=== PATIENT | female | born 2000 | race Caucasian/White ===

== ENCOUNTER 2023-04-21 05:07 | Emergency (ER) | payer OTHER, SELFPAY ==
[2023-04-21 05:11] VITALS: BP 150/80; PULSE 99; RESP 18; TEMP 37.3; O2SAT 98
[2023-04-21 05:25] LABS: Ur HCG Qualitative* Negative (Negative)
--- NOTE | 2023-04-21 05:25 | ED.FEMALEGU ---
HPI - Female Genitourinary General Time Seen by Provider: 05:25 Date Seen: 04/21/23 Chief complaint: Urogenital Problems, Female Stated complaint: vaginal pain Time Seen by Provider: 04/21/23 05:11 Source: patient, RN notes reviewed and old records reviewed Mode of arrival: ambulatory Limitations: no limitations History of Present Illness HPI Narrative: 22-year-old female who comes in today with 2 days of vaginal irritation. Has not noted any swelling or ulcers. No discharge. Last period was March 07, patient is on control and does note that she took a test which was negative. Denies urinary symptoms or abdominal pain. Related Data Allergies Allergy/AdvReac Type Severity Reaction Status Date / Time No Known Drug Allergies Allergy Verified 04/21/23 05:11 Exam Narrative: Exam Narrative: General: Well-developed and well-nourished, no acute distress Head: Atraumatic and normocephalic Eyes: Pupils are equal reactive, extraocular motions intact, conjunctiva clear ENT: External nose and ears are normal, posterior pharynx without erythema or exudate Neck: No midline cervical tenderness, full spontaneous range of motion the neck, trachea midline, no adenopathy Heart: Regular rate and rhythm no murmurs or thrills Lungs: Clear to auscultation bilaterally without wheezes or crackles Abdomen: Soft, nontender, nondistended with active bowel sounds Musculoskeletal: No tenderness, deformity, or edema Neurologic: Awake, alert, and oriented x3, no gross focal neurologic deficits, cranial nerves intact as tested Psych: Mood and affect are appropriate Skin: No rashes Const: Vital Signs, click to edit/add: Vital Signs - 24 hr 04/21/23 05:11 Temperature 99.2 F Pulse Rate [Left P ulse Oximeter] 99 Respiratory Rate 18 Blood Pressure [Ri ght Upper Arm] 150/80 H Pulse Oximetry 98 Oxygen Delivery Me thod Room Air Course Course ED Course: Patient presents today with vaginal pain and discharge, no swelling or ulcerations noted. No abdominal tenderness on exam, chaperoned pelvic exam will be performed. Reevaluation(s) Time of Reevaluation #1: 05:40 Reevaluation #1: Chaperoned pelvic exam performed. External genitalia normal in appearance. Patient quite tender with initial insertion of the speculum and notes that this is posterior. The vaginal mucosa does not demonstrate any erythema or ulcerations. There is scant yellowish discharge. On withdrawing the scope small amount of purulent discharge was noted and there is some mild erythema at the posterior commissure and forchette, particularly on the right. Although there is no swelling in this area, suspect patient may have an early Bartholin infection. No cyst or abscess to drain, patient will be started on antibiotics and discharged. Vital Signs Vital signs: Initial Vital Signs Temperature 99.2 F 04/21/23 05:11 Temperature Source Temporal Artery Scan 04/21/23 05:11 Pulse Rate 99 04/21/23 05:11 Pulse Rhythm Regular 04/21/23 05:11 Respiratory Rate 18 04/21/23 05:11 Blood Pressure 150/80 H 04/21/23 05:11 Blood Pressure Mean 103 04/21/23 05:11 Blood Pressure Position Sitting 04/21/23 05:11 Pulse Oximetry 98 04/21/23 05:11 Oxygen Delivery Method Room Air 04/21/23 05:11 Vital Signs Temperature 99.2 F 04/21/23 05:11 Pulse Rate 99 04/21/23 05:11 Respiratory Rate 18 04/21/23 05:11 Blood Pressure 150/80 H 04/21/23 05:11 Pulse Oximetry 98 04/21/23 05:11 Oxygen Delivery Method Room Air 04/21/23 05:11 Temperature 99.2 F 04/21/23 05:11 Pulse Rate 99 04/21/23 05:11 Respiratory Rate 18 04/21/23 05:11 Blood Pressure 150/80 H 04/21/23 05:11 Pulse Oximetry 98 04/21/23 05:11 Oxygen Delivery Method Room Air 04/21/23 05:11 MDM - Female Genitourinary Lab Data Labs: Lab Results 04/21/23 Range/Units 05:20 Urine HCG, Qual Negative (Negative) Discharge Plan Discharge Clinical Impression: Bartholin's gland infection Patient Disposition: Home, Self-Care Condition: Stable Instructions: Bartholin Cyst (ED) Additional Instructions: Warm Sitz baths a couple of times today. Tylenol ibuprofen for pain. Take antibiotics as prescribed and [facility] [phone] Activity Level: No Restrictions Follow Up/Referrals: Kylee Ivory MD [Referring] - Stand Alone Forms: [employer] Info Instructions
--- NOTE | 2023-04-21 05:59 | ED.NURSE ---
sql report writer chaperoned pelvic exam. patient tolerated pelvic exam, 2 swabs were collected.
[2023-04-21 06:28] LABS: Clue Cells No Clue Cells Seen (None Seen); Trichomonas No Trichomonas Seen (None Seen); Yeast No Yeast Seen (None Seen)
[2023-04-21 07:20] LABS: Chlamydia DNA Amplified* NOT DETECTED (No Detected); GC DNA Amplified* NOT DETECTED (No Detected)
== END 2023-04-21 06:00 | disposition home or self-care (01) ==
PROVIDERS: Emergency Provider Family Medicine; PCP Family Medicine
DX: N75.0 Cyst of Bartholin's gland (principal)
CPT/HCPCS: 81025; 87210; 87491; 87591; 99283; 99284